=== PATIENT | male | born 1950 | race Caucasian/White ===

== ENCOUNTER 2018-11-13 11:15 | Day surgery (SDC) | payer OTHER ==
[~2018-11-13 11:15] MED LIST: CHONDR SU A NA/HYALUR INTRAOC KIT (SURGICARE) ONE; EPINEPHRINE INJ/PF 1 MG/1 ML AMPULE ONE; KETOROLAC TROMETHAMINE 0.45% 4 DROP/0.4 ML DROPERETTE OS PRN; LIDOCAINE 1%/PHENYLEPHRINE 1.5% 1 ML VIAL ONE
[2018-11-13] MEDS: CYCLOPENTOLATE 0.2%/PHENYLEPHRINE 1% OPH SOLN 2 ML OS PRN ×3 (11:38→11:58)
[2018-11-13] MEDS: BESIFLOXACIN HCL 0.6% OPH SUSP 5 ML BOTTLE OS PRN ×4 (11:38→12:52)
[2018-11-13] MEDS: TROPICAMIDE 1% OPH SOLN 3 ML OS PRN ×3 (11:38→11:58)
[2018-11-13] MEDS: TETRACAINE HCL 0.5% OPH SOLN 4 ML OS PRN ×3 (11:39→12:25)
[2018-11-13] MEDS ORDERED: MIDAZOLAM 2 MG/2 ML INJ ONE (12:00)
[2018-11-13] MEDS ORDERED: FENTANYL CITRATE INJ/PF 100 MCG/2 ML AMPUL ONE (12:00)
[2018-11-13] MEDS: DORZOLAMIDE HCL 2%/TIMOLOL MALEAT 0.5% OPH SOLN 10 ML OS PRN ×2 (12:38→12:52)
--- NOTE | 2018-11-13 19:39 | [facility] OPERATIVE REPORT E ---
[facility] Operative Report NAME: SERINA SOSA AGE: 68Y DATE OF SURGERY: 11/13/2018 ROOM: PREOPERATIVE DIAGNOSES: 1. CATARACT LEFT EYE. 2. PUPIL MIOSIS OF THE LEFT EYE. POSTOPERATIVE DIAGNOSES: 1. CATARACT LEFT EYE. 2. PUPIL MIOSIS OF THE LEFT EYE. OPERATION: Complex cataract extraction with the use of a Malyugin ring due to pupillary miosis where the pupil measured to be less than 4 mm. SURGEON: MARLI SANTIAGO M.D. ANESTHESIA: TOPICAL. COMPLICATIONS: None. ESTIMATED BLOOD LOSS: None. PROCEDURE: After obtaining appropriate consent, the patient left eye was prepped and draped in sterile fashion as well as the surgeon in a sterile manner, and the cataract surgery was started. First, the paracentesis blade was used to make a small side-port incision. Viscoelastic was used to inflate the anterior chamber. Next a 2.4 mm incision was made using a 2.4 mm keratome. At this point, the pupil was less than 4.5 mm and was very miotic. In order to complete the capsulorhexis, a Malyugin ring was inserted and found to be in excellent position to help stabilize the pupil. Following this, a continuous capsulorhexis was made using a cystitome and Utrata forceps. Following this, hydrodissection was carried out to make the lens fully loose and mobile, and it was rotated 90 degrees. Following this, a divide and conquer technique was used to phacoemulsify the lens with a CDE of 9.99. The remaining cortex was removed with irrigation/aspiration. Provisc was instilled into the capsular bag to inflate the bag. A SN60AT lens of 34.0 diopters was placed. The remaining viscoelastic material was removed with irrigation/aspiration. After this the Malyugin ring was removed. Following this, the incision was found to be watertight. Besivance was instilled into the eye and a protective shield was placed over the eye. The patient returned to the postoperative recovery in stable condition. Prior to making the capsulorrhexis a Malyugin ring was inserted due to a pupillary dilation of 4 mm, this was removed at the removed at the end of the case. DICTATING PHYSICIAN: MARLI SANTIAGO M.D. [id number] PHY#: [id number] ID: [id number] JOB#: [id number] ACCT: [id number] cc:MARLI SANTIAGO M.D. >
--- NOTE | 2018-11-13 19:45 | [facility] DISCHARGE SUMMARY E ---
[facility] Discharge Summary NAME: SERINA SOSA AGE: 68Y ADMITTED: 11/13/2018 DISCHARGED: 11/13/2018 HOSPITAL COURSE: This is a 68-year-old patient who underwent complex cataract extraction of the left eye with use of a Malyugin ring. DIAGNOSIS: 1. CATARACT LEFT EYE. 2. PUPIL MIOSIS OF THE LEFT EYE. The patient underwent surgery because he was having difficulty driving at night secondary to glare from headlights, difficulty seeing small print. DISCHARGE INSTRUCTIONS: He is to be on a regular diet. No bending at his waist, no heavy lifting. He should use his Vigamox, ketorolac, and Predforte at 3 p.m. and 8 p.m. and sleep with a rigid shield. I will see him for a 1 day postoperative tomorrow. DICTATING PHYSICIAN: MARLI SANTIAGO M.D. [id number] PHY#: [id number] ID: [id number] JOB#: [id number] ACCT: [id number] cc:MARLI SANTIAGO M.D. >
== END 2018-11-13 13:37 | disposition home or self-care (01) ==
LOC: SC 11:15
PROVIDERS: ATTEND Internal Medicine
DX: H25.89 Other age-related cataract (principal); H57.03 Miosis; I10 Essential (primary) hypertension; Z79.01 Long term (current) use of anticoagulants; Z86.73 Personal history of transient ischemic attack (TIA), and cerebral infarction without residual deficits; E11.9 Type 2 diabetes mellitus without complications; Z79.84 Long term (current) use of oral hypoglycemic drugs; Z79.4 Long term (current) use of insulin; Z79.82 Long term (current) use of aspirin
CPT/HCPCS: 66982; 82962; V2632; J2250; J3490 ×2; J0171; J3010; J2370

== ENCOUNTER 2018-12-04 09:57 | Day surgery (SDC) | payer OTHER ==
[~2018-12-04 09:57] MED LIST changes: -CHONDR SU A NA/HYALUR INTRAOC KIT (SURGICARE) ONE; -EPINEPHRINE INJ/PF 1 MG/1 ML AMPULE ONE; +KETOROLAC TROMETHAMINE 0.45% 4 DROP/0.4 ML DROPERETTE OD PRN; -KETOROLAC TROMETHAMINE 0.45% 4 DROP/0.4 ML DROPERETTE OS PRN; -LIDOCAINE 1%/PHENYLEPHRINE 1.5% 1 ML VIAL ONE
[2018-12-04] MEDS ORDERED: MIDAZOLAM 2 MG/2 ML INJ ONE (10:20)
[2018-12-04] MEDS: TETRACAINE HCL 0.5% OPH SOLN 4 ML OD PRN ×4 (11:07→11:31)
[2018-12-04] MEDS: CYCLOPENTOLATE 0.2%/PHENYLEPHRINE 1% OPH SOLN 2 ML OD PRN ×3 (11:08→11:27)
[2018-12-04] MEDS: TROPICAMIDE 1% OPH SOLN 3 ML OD PRN ×3 (11:08→11:27)
[2018-12-04] MEDS: BESIFLOXACIN HCL 0.6% OPH SUSP 5 ML BOTTLE OD PRN ×4 (11:08→12:00)
[2018-12-04] MEDS: CHONDR SU A NA/HYALUR INTRAOC KIT (SURGICARE) ONE ×2 (11:37)
[2018-12-04] MEDS: LIDOCAINE 1%/PHENYLEPHRINE 1.5% 1 ML VIAL ONE ×2 (11:37)
[2018-12-04] MEDS: EPINEPHRINE INJ/PF 1 MG/1 ML AMPULE ONE ×2 (11:37)
[2018-12-04] MEDS: DORZOLAMIDE HCL 2%/TIMOLOL MALEAT 0.5% OPH SOLN 10 ML OD PRN ×2 (12:00)
[2018-12-04] MEDS ORDERED: CHONDR SU A NA/HYALUR SOD 0.5 ML DISP.SYRIN ONE (12:06)
--- NOTE | 2018-12-05 08:59 | [facility] OPERATIVE REPORT E ---
[facility] Operative Report NAME: SERINA SOSA AGE: 68Y DATE OF SURGERY: 12/04/2018 ROOM: PREOPERATIVE DIAGNOSES: 1. CATARACT, RIGHT EYE. 2. PUPIL MIOSIS, RIGHT EYE. POSTOPERATIVE DIAGNOSES: 1. CATARACT, RIGHT EYE. 2. PUPIL MIOSIS, RIGHT EYE. OPERATION: Complex cataract extraction with use of a Malyugin ring due to poor pupillary dilation of 4 mm. SURGEON: MARLI SANTIAGO M.D. ANESTHESIA: Topical. PROCEDURE: After obtaining appropriate consent, the patient's right eye was prepped and draped in sterile fashion as well as the surgeon in a sterile manner and cataract surgery was started. First a paracentesis blade was used to make a side-port incision. Viscoelastic was used to inflate the anterior chamber. Next a 2.4 mm incision was made with a 2.4 mm blade, clear corneal temporally. A continuous capsulorrhexis was made using a cystotome and Utrata forceps. Following this hydrodissection was carried out to make the lens fully loose and mobile and it was rotated 90 degrees. Following this, a zbutof-ski-sflixqt technique was used to phacoemulsify the lens with a CDE of 6.23. The remaining cortex was removed with irrigation/aspiration. Provisc was instilled into the capsular bag to inflate the bag. A SN60AT, 31.0 diopter lens was placed. The remaining viscoelastic material was removed with irrigation/aspiration. Following this, the incision was found to be watertight. Besivance was instilled into the eye and a protective shield was placed over the eye. The patient returned to the postoperative recovery in stable condition. Prior to making the capsulorrhexis a Malyugin ring was inserted due to poor pupillary dilation. This was removed at the end of the case. DICTATING PHYSICIAN: MARLI SANTIAGO M.D. [id number] PHY#: [id number] ID: [id number] JOB#: [id number] ACCT: [id number] cc:MARLI SANTIAGO M.D. >
--- NOTE | 2018-12-05 09:04 | [facility] DISCHARGE SUMMARY E ---
[facility] Discharge Summary NAME: SERINA SOSA AGE: 68Y ADMITTED: 12/04/2018 DISCHARGED: 12/04/2018 DIAGNOSES: 1. CATARACT, RIGHT EYE. 2. PUPIL MIOSIS, RIGHT EYE. SUMMARY: This is a 68-year-old male who underwent complex cataract extraction with use of a Malyugin ring of the right eye. The patient underwent surgery because he was having difficulty seeing small print. DISCHARGE INSTRUCTIONS: He should be on a regular diet, no bending at the waist, and no heavy lifting. He should use his Vigamox, Ketorolac, and Pred Forte at 3 p.m. and 8 p.m. and sleep with a rigid shield. I will see him for a 1-day postoperative tomorrow. DICTATING PHYSICIAN: MARLI SANTIAGO M.D. [id number] PHY#: [id number] ID: [id number] JOB#: [id number] ACCT: [id number] cc:MARLI SANTIAGO M.D. >
== END 2018-12-04 12:43 | disposition home or self-care (01) ==
LOC: SC 09:57
PROVIDERS: ATTEND Internal Medicine
DX: H25.89 Other age-related cataract (principal); H57.03 Miosis; Z96.1 Presence of intraocular lens; E11.9 Type 2 diabetes mellitus without complications; I10 Essential (primary) hypertension; I49.9 Cardiac arrhythmia, unspecified; Z86.73 Personal history of transient ischemic attack (TIA), and cerebral infarction without residual deficits; Z79.899 Other long term (current) drug therapy; Z79.01 Long term (current) use of anticoagulants; Z79.4 Long term (current) use of insulin; Z79.84 Long term (current) use of oral hypoglycemic drugs; Z79.82 Long term (current) use of aspirin
CPT/HCPCS: 66982; 82962; V2632; J2250; J3490 ×3; J0171; J2370